=== PATIENT | female | born 1995 | race Caucasian/White ===

== ENCOUNTER → 2017-01-08 | Outpatient (CLI) | payer BC, OTHER ==
--- NOTE | 2017-01-08 15:24 | CT ---
CT of the abdomen and pelvis without contrast. HISTORY: Pain TECHNIQUE: Axial CT images were obtained of the abdomen and pelvis without contrast. Coronal and sag ittal reconstructions obtained. FINDINGS: The lung bases are clear, no pleural effusion. The liver, spleen, adrenal glands, and pancreas appear unremarkable for noncontrast examination. Cho lelithiasis without evidence of cholecystitis. There is no bulky retroperitoneal lymphadenopathy. No abdominal ascites. There are no calcifications noted within the kidneys or along the courses of the ureters bilaterally . There is a right-sided ureteral stent noted which has inferiorly migrated with the proximal pigtai l portion within the mid ureter. The large and small bowel are normal in caliber without evidence of obstruction. The appendix appear s normal. There is no bulky pelvic lymphadenopathy. No free fluid. No free air. The urinary bladder appears normal. The visualized osseous structures appear normal. IMPRESSION: 1. There is a right-sided double pigtail ureteral stent noted, unchanged in position with the proxi mal pigtail portion within the ureter. 2. No acute findings within the abdomen or pelvis. 3. Cholelithiasis without evidence of cholecystitis.
== END ==
LOC: MW.DI 12:59
PROVIDERS: ATTEND Urology
DX: N20.0 Calculus of kidney (principal); K80.20 Calculus of gallbladder without cholecystitis without obstruction
CPT/HCPCS: 74176; 74176-26

== ENCOUNTER 2019-07-25 20:59 | Emergency (ER) | payer OTHER ==
[2019-07-25] MEDS ORDERED: Sodium Chloride 0.9% 1,000 ML IV ONE (21:31)
[2019-07-25] MEDS ORDERED: Sodium Chloride 0.9% 10 ML Syringe FLUSH PRN (21:31)
[2019-07-25] MEDS ORDERED: Sodium Chloride 0.9% 2.5 ML Syringe FLUSH PRN (21:31)
[2019-07-25] MEDS ORDERED: HYDROmorphone 1 MG/ML Syringe IVPUSH ONE ×2 (21:31→22:17)
[2019-07-25] MEDS ORDERED: Ondansetron 4 MG/2 ML SDV IVPUSH ONE (21:31)
--- NOTE | 2019-07-25 21:35 | EDM.PDOC ---
ED HPI GENERAL MEDICAL PROBLEM - General Chief Complaint: [employer] Problem Stated Complaint: PT IS IN PAIN Time Seen by Provider: 07/25/19 21:24 - History of Present Illness INITIAL COMMENTS - FREE TEXT/NARRATIVE: HISTORY AND PHYSICAL: History of present illness: The patient is a 24-year-old female with a history of endometriosis and underwent a da Renea procedure for hysterectomy today at [facility] with Dr. King, and who was discharged from same-day surgery approximately 1 PM and presents with persistent lower abdominal pain despite using ibuprofen and her baseline hydrocodone that she has at home. Patient has a history of a DVT and has hydrocodone at home that she uses chronically and she said that she did take some at 3:30 PM as well as an ibuprofen at 5:30 and is still having persistent pain. She's having no vaginal bleeding no fevers and no nausea or vomiting and she says that there is some discomfort with urination and pressure and and she feels like her lower pelvis is going to explode. She has had fluids and ate some small snacks after being discharged. She was not prescribed any additional pain medication at her discharge today. She did contact the technical solutions consultant on-call, Dr. Vale, who told her to try to work through it this evening and that it would be better tomorrow but if it continued to come here to the ED. The patient denies any upper abdominal pain. The patient says she has had many laparoscopies and laparoscopic procedures in the past and she has never had this much discomfort. She does not feel bloated The patient has been off her Xarelto preop and is slated to restarted in 2 days. Review of systems: As per history of present illness and below otherwise all systems reviewed and negative. Past medical history: As per history of present illness and as reviewed below otherwise noncontributory. Surgical history: As per history of present illness and as reviewed below otherwise noncontributory. Social history: No reported history of drug or alcohol abuse. Family history: As per history of present illness and as reviewed below otherwise noncontributory. Physical exam: General: Well-developed well-nourished female who is nontoxic and vital signs are noted by me. She moves easily in the ED but looks overall uncomfortable. HEENT: Atraumatic, normocephalic, negative for conjunctival pallor or scleral icterus, mucous membranes tacky, throat clear, neck supple, nontender, trachea midline. Lungs: Clear to auscultation, breath sounds equal bilaterally, chest nontender. Heart: S1S2, regular rate and rhythm no overt murmurs Abdomen: Soft, nondistended, no sounds are very hypoactive and there is tympany on percussion of the upper abdomen. There is some mild diffuse lower abdominal tenderness without rebound or guarding and all of her dressings for her incisions are clean and dry and there is no surrounding erythema noted. Negative for masses or hepatosplenomegaly. Negative for costovertebral tenderness. Pelvis: Stable nontender. Genitourinary: Deferred. Rectal: Deferred. Extremities: Atraumatic, negative for cords or calf pain. Neurovascular unremarkable. Neuro: Awake, alert, oriented. Cranial nerves II through XII unremarkable. Cerebellum unremarkable. Motor and sensory unremarkable throughout. Exam nonfocal. Diagnostics: CBC UA with reflex bladder scan, postvoid if possible, upright abdominal x-ray Therapeutics: IV fluids Zofran Dilaudid Ativan Patient voided 500 mL of urine which she told nursing was the most she has urinated all day and her post void residual per bladder scan was 300 mL. 2235: Case was discussed with Dr. Vale was radiation protection specialist for gynecology for our patients provider. He agrees with the care plan and agrees with sending the patient home with some Percocet as a new medication other than her hydrocodone that may help her with the pain management. I will give her medications from [employer]. He also agrees that if the patient cannot free void the 300 mL of urine that we found a bladder scan that she should be straight cathetered. He also asked me to address with her whether or not she was on perioperative Lovenox. The patient tells me that she was not on Lovenox preop or is scheduled to do it postop and he would like her to address this with her provider tomorrow to see if he would like to place her on that Lovenox. The patient states understanding. I did tell her and offer her a Ho catheter at this point and she agrees she would like to try to go home push fluids and free void on her own at this point. She agrees that if she cannot free void urine here we will straight catheter and she should return here if she has further problems with urination. I've also told her that she absolutely has to have a conversation with her provider in the morning about pain management as well as the Lovenox and tonight's events. She states understanding. She is feeling somewhat better here. Impression: Postoperative pain, postoperative difficulty urinating improving Definitive disposition and diagnosis as appropriate pending reevaluation and review of above. post operative site Pain Score (Numeric/FACES): 10 - Related Data Allergies Allergy/AdvReac Type Severity Reaction Status Date / Time ketorolac tromethamine Allergy Vomiting Verified 07/25/19 21:21 [From Toradol] Penicillins Allergy Swelling Verified 07/25/19 21:21 Home Meds: Home Meds Amphetamine/Dextroamphetamine [Adderall] 15 mg PO BID 05/22/18 [History] Hydrocodone/Acetaminophen [Hydrocodon-Acetaminoph 2.5-325] 7.5 mg PO Q8HR [History] traZODone 5 mg PO DAILY 05/22/18 [History] Rivaroxaban [Xarelto] 0 mg PO BEDTIME 07/25/19 [History] Past Medical History HEENT History: Reports: None Cardiovascular History: Reports: None Respiratory History: Reports: None Gastrointestinal History: Reports: GERD, Other (See Below) Other Gastrointestinal History: Heartburn in Genitourinary History: Reports: Renal Calculus, Other (See Below) Other Genitourinary History: Chronic Right abdominal pain, "right flank pain" [employer]ER History: Reports: 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 Rodrigez [facility] specialist, 1 Para 0 Musculoskeletal History: Reports: Fracture Other Musculoskeletal History: hx: fracturing Clavicle Neurological History: Reports: Other (See Below) Other Neuro History: Right Flank pain intermittently Psychiatric History: Reports: None Endocrine/Metabolic History: Reports: None Hematologic History: Reports: None Immunologic History: Reports: None Oncologic (Cancer) History: Reports: None Dermatologic History: Reports: None - Infectious Disease History Infectious Disease History: Reports: Human Papilloma Virus (HPV) - Past Surgical History HEENT Surgical History: Reports: Oral Surgery GI Surgical History: Reports: Appendectomy, Other (See Below) Female Surgical History: Reports: Other (See Below) - History Comment History Comment: denies etoh Social & Family History - Family History Family Medical History: Noncontributory Cardiac: Reports: Heart Murmur, Hypertension Respiratory: Reports: COPD OBGYN: Reports: Psychiatric: Reports: Depression Endocrine/Metabolic: Reports: Diabetes, type II Hematologic: Reports: Anemia Oncologic: Reports: Cervix, Lung, Thyroid - Caffeine Use Caffeine Use: Reports: Soda Caffeine Use Comment: 1 drink/day ED ROS GENERAL - Review of Systems Review Of Systems: ROS reveals no pertinent complaints other than HPI. ED EXAM, GENERAL - Physical Exam Exam: See Below (See dictation) Course - Vital Signs Last Recorded V/S: Last Vital Signs Temp 36.6 C 07/25/19 21:13 Pulse 89 07/25/19 21:13 Resp 17 07/25/19 21:13 BP 116/59 L 07/25/19 21:13 Pulse Ox 98 07/25/19 21:13 - Orders/Labs/Meds Orders: Active Orders 24 hr Category Date Time Status Bladder Scan [RC] ASDIRECTED Care 07/25/19 21:36 Active Sodium Chloride 0.9% [Saline Flush] Med 07/25/19 21:31 Active 10 ml FLUSH ASDIRECTED PRN Sodium Chloride 0.9% [Saline Flush] Med 07/25/19 21:31 Active 2.5 ml FLUSH ASDIRECTED PRN Saline Lock Insert [OM.PC] Stat Oth 07/25/19 21:30 Ordered Medication Orders Sodium Chloride (Saline Flush) 10 ml FLUSH ASDIRECTED PRN PRN Reason: Keep Vein Open Last Admin: 07/25/19 21:47 Dose: 10 ml Sodium Chloride (Saline Flush) 2.5 ml FLUSH ASDIRECTED PRN PRN Reason: Keep Vein Open Last Admin: 07/25/19 21:47 Dose: 2.5 ml Labs: Laboratory Tests 07/25/19 07/25/19 Range/Units 21:30 21:55 WBC 15.60 H (4.0-11.0) K/uL RBC 4.07 L (4.30-5.90) M/uL Hgb 12.0 (12.0-16.0) g/dL Hct 36.5 (36.0-46.0) % MCV 89.7 (80.0-98.0) fL MCH 29.5 (27.0-32.0) pg MCHC 32.9 (31.0-37.0) g/dL RDW Std Deviation 43.1 (28.0-62.0) fl RDW Coeff of Yuki 13 (11.0-15.0) % Plt Count 335 (150-400) K/uL MPV 9.50 (7.40-12.00) fL Neut % (Auto) 83.1 H (48.0-80.0) % Lymph % (Auto) 8.5 L (16.0-40.0) % Mcdowell % (Auto) 8.3 (0.0-15.0) % Eos % (Auto) 0.0 (0.0-7.0) % Baso % (Auto) 0.1 (0.0-1.5) % Neut # (Auto) 13.0 H (1.4-5.7) K/uL Lymph # (Auto) 1.3 (0.6-2.4) K/uL Mcdowell # (Auto) 1.3 H (0.0-0.8) K/uL Eos # (Auto) 0.0 (0.0-0.7) K/uL Baso # (Auto) 0.0 (0.0-0.1) K/uL Nucleated RBC % 0.0 /100WBC Nucleated RBCs # 0 K/uL Urine Color YELLOW Urine Appearance CLEAR Urine pH 6.5 (5.0-8.0) Ur Specific [place] <= 1.005 (1.001-1.035) Urine Protein NEGATIVE (NEGATIVE) mg/dL Urine Glucose (UA) NEGATIVE (NEGATIVE) mg/dL Urine Ketones NEGATIVE (NEGATIVE) mg/dL Urine Occult Blood SMALL H (NEGATIVE) Urine Nitrite NEGATIVE (NEGATIVE) Urine Bilirubin NEGATIVE (NEGATIVE) Urine Urobilinogen 0.2 (<2.0) EU/dL Ur Leukocyte Esterase NEGATIVE (NEGATIVE) Urine RBC 0-1 (0-2/HPF) Urine WBC 0-1 (0-5/HPF) Ur Epithelial Cells RARE (NONE-FEW) Urine Bacteria RARE (NEGATIVE) Urine Mucus LIGHT (NONE-MOD) Meds: Medications Generic Name Dose Route Start Last Admin Trade Name Freq PRN Reason Stop Dose Admin Sodium Chloride 10 ml 07/25/19 21:31 07/25/19 21:47 Saline Flush FLUSH 10 ml ASDIRECTED PRN Administration Keep Vein Open Sodium Chloride 2.5 ml 07/25/19 21:31 07/25/19 21:47 Saline Flush FLUSH 2.5 ml ASDIRECTED PRN Administration Keep Vein Open Discontinued Medications Generic Name Dose Route Start Last Admin Trade Name Kimmie PRN Reason Stop Dose Admin Hydromorphone HCl 1 mg 07/25/19 21:31 07/25/19 21:45 Dilaudid IVPUSH 07/25/19 21:32 1 mg ONETIME ONE Administration Hydromorphone HCl 1 mg 07/25/19 22:17 07/25/19 22:29 Dilaudid IVPUSH 07/25/19 22:18 1 mg ONETIME ONE Administration Sodium Chloride 1,000 mls @ 999 mls/hr 07/25/19 21:31 07/25/19 21:43 Normal Saline IV 07/25/19 22:31 999 mls/hr STAT ONE Administration Lorazepam 0.5 mg 07/25/19 22:17 07/25/19 22:28 Ativan IVPUSH 07/25/19 22:18 0.5 mg ONETIME ONE Administration Ondansetron HCl 4 mg 07/25/19 21:31 07/25/19 21:43 Zofran IVPUSH 07/25/19 21:32 4 mg ONETIME ONE Administration Departure - Departure Time of Disposition: 22:50 Disposition: Home, Self-Care 01 Condition: Good Clinical Impression: Postoperative pain, Difficulty urinating - Discharge Information Referrals: PCP,None [Primary Care Provider] - Forms: ED Department Discharge Additional Instructions: The following information is given to patients seen in the emergency department who are being discharged to home. This information is to outline your options for follow-up care. We provide all patients seen in our emergency department with a follow-up referral. The need for follow-up, as well as the timing and circumstances, are variable depending upon the specifics of your emergency department visit. If you don't have a primary care physician on staff, we will provide you with a referral. We always advise you to contact your personal physician following an emergency department visit to inform them of the circumstance of the visit and for follow-up with them and/or the need for any referrals to a consulting specialist. The emergency department will also refer you to a specialist when appropriate. This referral assures that you have the opportunity for followup care with a specialist. All of these measure are taken in an effort to provide you with optimal care, which includes your followup. Under all circumstances we always encourage you to contact your private physician who remains a resource for coordinating your care. When calling for followup care, please make the office aware that this follow-up is from your recent emergency room visit. If for any reason you are refused follow-up, please contact the [facility] emergency department at and ask to speak to the emergency department charge nurse. [facility] [address] [address] Please continue to use [id number] ibuprofen for pain management and add the new Percocet you have been given here as you choose but do not mix it with the hydrocodone that you take chronically. You must choose one or the other medication. Please call your technical solutions consultant in the morning and touch base with him about the pain and as well as tonight's events. Please also discussed with him whether or not you should be on Lovenox for the next 2 days into you restart your Xarelto.. Push hydration and return to ER as needed and as discussed. Please monitor your urination and if you feel that you are not voiding enough or having difficulty with urination please also return to the ED. - My Orders Last 24 Hours: My Active Orders 07/25/19 21:30 Saline Lock Insert [OM.PC] Stat 07/25/19 21:31 Sodium Chloride 0.9% [Saline Flush] 10 ml FLUSH ASDIRECTED PRN Sodium Chloride 0.9% [Saline Flush] 2.5 ml FLUSH ASDIRECTED PRN 07/25/19 21:36 Bladder Scan [RC] ASDIRECTED - Assessment/Plan Last 24 Hours: My Active Orders 07/25/19 21:30 Saline Lock Insert [OM.PC] Stat 07/25/19 21:31 Sodium Chloride 0.9% [Saline Flush] 10 ml FLUSH ASDIRECTED PRN Sodium Chloride 0.9% [Saline Flush] 2.5 ml FLUSH ASDIRECTED PRN 07/25/19 21:36 Bladder Scan [RC] ASDIRECTED
[2019-07-25] MEDS ORDERED: LORazepam 2 MG/ML SDV IVPUSH ONE (22:17)
--- NOTE | 2019-07-25 22:33 | CR ---
INDICATION: Patient had hysterectomy today. Severe abdominal pain TECHNIQUE: Abdominal radiograph 2 views COMPARISON: None FINDINGS: Bowel: The bowel gas pattern is normal without evidence of bowel obstruction. Moderate amount of stool noted in the colon. Soft tissue: No evidence of pneumoperitoneum present. No suspicious calcifications noted. Bone: Unremarkable for age. IMPRESSION: 1. Unremarkable appearance of the visualized abdomen. Dictated by: Norris Pyle MD @ 07/25/2019 22:31:23 (Electronically Signed)
[2019-07-25 23:20] VITALS: BP 125/65; PULSE 87
== END 2019-07-25 23:20 | disposition home or self-care (01) ==
LOC: MW.ED 20:59
DX: G89.18 Other acute postprocedural pain (principal); R30.0 Dysuria; Z79.01 Long term (current) use of anticoagulants; Z86.718 Personal history of other venous thrombosis and embolism; Z88.0 Allergy status to penicillin; Z88.6 Allergy status to analgesic agent
CPT/HCPCS: 74018; 81001; 85025; 96361; 96374; 96375; 96376; 99283; J1170; J2060; J2405; J7040